=== PATIENT | female | born 1985 | race Caucasian/White ===

== ENCOUNTER 2018-01-15 20:50 | Emergency (ER) | payer OTHER, MEDICAID ==
[~2018-01-15] VITALS: Ht 170.2 cm; Wt 90.3 kg
[~2018-01-15 20:50] MED LIST: ALBUTEROL2.5 MG/0.5 INH; PREDNISONE 20 M20 M1 PO; VENTOLIN HFA 1818 GM INH; ZANTAC 150MG T150 MG PO; ZYRTEC10 M5 PO
[2018-01-15] MEDS ORDERED: SLIMQUICK (21:06)
[2018-01-15] MEDS ORDERED: PROAIR HFA8.5 GM INH (21:44)
[2018-01-15] MEDS ORDERED: KETOCONAZOLE15 GM TOP (21:44)
[2018-01-15] MEDS ORDERED: PREDNISONE50 MG PO (21:44)
[2018-01-15 22:09] VITALS: BP 130/89
== END 2018-01-15 22:11 | disposition home or self-care (01) ==
LOC: M.ERS 20:50
DX: J45.901 Unspecified asthma with (acute) exacerbation (principal); K21.9 Gastro-esophageal reflux disease without esophagitis; F17.210 Nicotine dependence, cigarettes, uncomplicated; Z90.49 Acquired absence of other specified parts of digestive tract; Z98.890 Other specified postprocedural states; Z88.0 Allergy status to penicillin; Z91.018 Allergy to other foods; Z88.8 Allergy status to other drugs, medicaments and biological substances

== ENCOUNTER 2018-03-15 21:55 | Emergency (ER) | payer OTHER, MEDICAID ==
[~2018-03-15] VITALS: Ht 170.2 cm; Wt 96.2 kg
[~2018-03-15 21:55] MED LIST changes: +KETOCONAZOLE15 GM TOP; +PREDNISONE50 MG PO; +PROAIR HFA8.5 GM INH; +SLIMQUICK
[2018-03-15] MEDS ORDERED: PROAIR HFA8.5 GM INH (22:50)
[2018-03-15] MEDS ORDERED: PREDNISONE 20 M20 MG PO (22:50)
[2018-03-15 23:13] VITALS: BP 150/90
== END 2018-03-15 23:17 | disposition home or self-care (01) ==
LOC: M.ERS 21:55
DX: J45.901 Unspecified asthma with (acute) exacerbation (principal); K21.9 Gastro-esophageal reflux disease without esophagitis; Z90.49 Acquired absence of other specified parts of digestive tract; Z98.890 Other specified postprocedural states; F17.210 Nicotine dependence, cigarettes, uncomplicated; Z88.0 Allergy status to penicillin; Z88.8 Allergy status to other drugs, medicaments and biological substances